=== PATIENT | female | born 1960 | race Caucasian/White ===

== ENCOUNTER → 2017-06-03 | Outpatient (REF) | payer OTHER ==
[2017-06-04 14:25] LABS: COMPLEMENT C4 29.2 MG/DL (10-40)
== END ==
LOC: M LAB REF 13:16
PROVIDERS: ATTEND Internal Medicine Nephrology
DX: N18.3 Chronic kidney disease, stage 3 (moderate) (principal); N17.9 Acute kidney failure, unspecified; R80.9 Proteinuria, unspecified

== ENCOUNTER → 2017-06-11 | Outpatient (REF) | payer MEDICARE, OTHER ==
[2017-06-12 14:21] LABS: PERCENT SATURATION 15.4 % (13.2-45.0)
== END ==
LOC: M LAB REF 13:57
PROVIDERS: ATTEND Internal Medicine Nephrology
DX: N18.3 Chronic kidney disease, stage 3 (moderate) (principal); D63.1 Anemia in chronic kidney disease; D50.9 Iron deficiency anemia, unspecified

== ENCOUNTER → 2017-07-02 | Outpatient (CLI) | payer MEDICARE, OTHER ==
--- NOTE | 2017-07-02 14:23 | REP ---
Nuclear renal scintigraphy with differential flow and function analysis: History: Chronic kidney disease stage IV. Technique: 8.6 mCi of technetium 99m MAG 3 is injected and posterior flow and excretory phase images are acquired. Renal cortical regions of interest are drawn and time activity curves are plotted for renal functional analysis. Scintigraphic findings: Posterior flow study shows delayed perfusion of the left kidney compared to the right. Excretory phase images demonstrate asymmetric function with bilaterally delayed pyelogram phase. No intrarenal mass lesion is seen on either side. There is evidence of bilateral hydronephrosis with bilaterally dilated filling of the intrarenal collecting systems and ureters particularly on the left. Differential renal function analysis is asymmetric with only 24% of overall renal cortical counts coming from the left kidney and 76% coming from the right. Time to peak activity is abnormal bilaterally measured at 20 minutes on the left and 27 minutes on the right. The renal excretion curves are rising on both sides. Impression: Rising renal excretion curves bilateral hydronephrosis. Findings compatible with obstructive uropathy. Delayed perfusion left kidney. Signed by Jos Velasquez MD 07/02/2017 02:48 P
== END ==
LOC: M RAD 12:49
PROVIDERS: ATTEND Internal Medicine Nephrology
DX: N13.9 Obstructive and reflux uropathy, unspecified (principal)
CPT/HCPCS: 78707; A9562

== ENCOUNTER → 2017-08-20 | Outpatient (REF) | LOC: M SMT 11:39 | DX: Z02.71 Encounter for disability determination (principal) ==

== ENCOUNTER → 2018-12-30 | Outpatient (REF) | payer MEDICARE, MEDICAID ==
[2018-12-30 18:44] LABS: BASO # 0.1 10^3/uL (0.0-0.2); BASO % 0.7 % (0.0-1.0); EOS # 0.2 10^3/uL (0.0-0.50); EOS % 1.8 % (0.0-3.0); HEMATOCRIT 43.6 % (36.0-47.0); LYMPH # 3.4 10^3/uL (1.5-4.5); MEAN CORPUSCULAR HEMOGLOBIN 30.6 pg (27.0-33.0); MEAN CORPUSCULAR HGB CONC 32.1 g/dl (32.0-36.5); MEAN CORPUSCULAR VOLUME 95.2 fl (80.0-96.0); MONO # 1.2 10^3/uL (0.0-0.8); MONO % 11.9 % (0.0-5.0); NEUTROPHILS # 5.1 10^3/uL (1.8-7.7); NEUTROPHILS % 51.3 % (36.0-66.0); PLATELET COUNT, AUTOMATED 298 10^3/uL (150-450); RED BLOOD COUNT 4.58 10^6/uL (4.00-5.40); WHITE BLOOD COUNT 9.9 10^3/uL (4.0-10.0)
== END ==
LOC: M LAB REF 17:16
PROVIDERS: ATTEND Internal Medicine Nephrology
DX: N18.3 Chronic kidney disease, stage 3 (moderate) (principal); I48.91 Unspecified atrial fibrillation

== ENCOUNTER → 2019-10-27 | Outpatient (REF) | payer MEDICARE, MEDICAID | LOC: M LAB REF 12:46 | PROVIDERS: ATTEND Nurse Practitioner Family | DX: N39.0 Urinary tract infection, site not specified (principal) ==

== ENCOUNTER → 2020-06-09 | Outpatient (REF) | payer MEDICARE, MEDICAID ==
[2020-06-09 18:44] LABS: PERCENT SATURATION 12.8 % (13.2-45.0)
== END ==
LOC: M LAB REF 17:03
PROVIDERS: ATTEND Internal Medicine Nephrology
DX: N39.0 Urinary tract infection, site not specified (principal); N18.30 Chronic kidney disease, stage 3 unspecified; D63.1 Anemia in chronic kidney disease

== ENCOUNTER → 2020-09-25 | Outpatient (REF) | payer MEDICARE, MEDICAID | LOC: M LAB REF 17:20 | PROVIDERS: ATTEND Internal Medicine Nephrology | DX: R30.0 Dysuria (principal) ==

== ENCOUNTER → 2021-04-04 | Outpatient (REF) | payer MEDICARE, MEDICAID | LOC: M LAB REF 17:03 | PROVIDERS: ATTEND Internal Medicine Nephrology | DX: N39.0 Urinary tract infection, site not specified (principal); N18.32 Chronic kidney disease, stage 3b; E83.42 Hypomagnesemia ==

== ENCOUNTER → 2021-11-27 | Outpatient (POV) | payer MEDICARE, MEDICAID ==
[~2021-11-27] VITALS: Ht 165.1 cm; Wt 80.0 kg
[~2021-11-27] MED LIST: AMIO200T49 PO; CYCL-707 PO; DULO1CAP6 PO; ENTR1TAB7 PO; LEVO88TA3 PO; METO1TAB7 PO; NEUR300C PO; XARE15TA PO
[2021-11-27 13:40] VITALS: BP 122/82
== END ==
LOC: M IRPOV 13:24
PROVIDERS: ATTEND Radiology Diagnostic Radiology
DX: Z93.6 Other artificial openings of urinary tract status (principal); Z87.440 Personal history of urinary (tract) infections; Z87.442 Personal history of urinary calculi; Z87.448 Personal history of other diseases of urinary system; Z79.01 Long term (current) use of anticoagulants

== ENCOUNTER → 2021-12-05 | Outpatient (CLI) | payer MEDICARE, MEDICAID ==
[~2021-12-05] MED LIST changes: +CEPHALEXIN 500 MG CAP As Ordered ONE; +ISOVUE-300 61% 50ML VIAL As Ordered ONE; +LIDOCAINE 1% MDV 20ML VIAL As Ordered ONE
[2021-12-05] MEDS: CEPHALEXIN 500 MG CAP PO ONE (10:40)
[2021-12-05 14:00] VITALS: BP 107/61
== END ==
LOC: M IRPRO 09:56
PROVIDERS: ATTEND Radiology Diagnostic Radiology
DX: N35.92 Unspecified urethral stricture, female (principal)
CPT/HCPCS: 50435; C1729; C1769; C1887; Q9967

== ENCOUNTER → 2022-05-08 | Outpatient (CLI) | payer MEDICARE, MEDICAID ==
[~2022-05-08] MED LIST changes: -CEPHALEXIN 500 MG CAP As Ordered ONE; -ISOVUE-300 61% 50ML VIAL As Ordered ONE; -LIDOCAINE 1% MDV 20ML VIAL As Ordered ONE; +NS 1,000 ML IV SCH; +ceFAZolin 2 GM/D5W 50 ML IV BAG (J0690 PER 500MG) As Ordered ONE; +ceFAZolin SOD 2 GM in D5W MINI-BAG PLUS 50 ML IV ONE
[2022-05-08 12:45] VITALS: BP 105/71
== END ==
LOC: M IRPRO 12:31
PROVIDERS: ATTEND Radiology Diagnostic Radiology
DX: N13.9 Obstructive and reflux uropathy, unspecified (principal); Z53.29 Procedure and treatment not carried out because of patient's decision for other reasons

== ENCOUNTER → 2022-07-10 | Outpatient (CLI) | payer MEDICARE, MEDICAID ==
[~2022-07-10] MED LIST changes: +CEPHALEXIN 500 MG CAP As Ordered ONE; +CEPHALEXIN 500 MG CAP PO ONE; +ISOVUE-300 61% 50ML VIAL As Ordered ONE; +LIDOCAINE 1% MDV 20ML VIAL As Ordered ONE; -ceFAZolin 2 GM/D5W 50 ML IV BAG (J0690 PER 500MG) As Ordered ONE
[2022-07-10 12:55] VITALS: BP 153/87
== END ==
LOC: M IRPRO 11:04
PROVIDERS: ATTEND Radiology Diagnostic Radiology
DX: N35.92 Unspecified urethral stricture, female (principal)
CPT/HCPCS: 50435; C1729; C1769; Q9967

== ENCOUNTER → 2023-01-13 | Outpatient (REF) | payer MEDICARE, MEDICAID ==
[~2023-01-13] MED LIST changes: -CEPHALEXIN 500 MG CAP As Ordered ONE; -CEPHALEXIN 500 MG CAP PO ONE; -ISOVUE-300 61% 50ML VIAL As Ordered ONE; -LIDOCAINE 1% MDV 20ML VIAL As Ordered ONE; -NS 1,000 ML IV SCH; -ceFAZolin SOD 2 GM in D5W MINI-BAG PLUS 50 ML IV ONE
== END ==
LOC: M LAB REF 17:14
PROVIDERS: ATTEND Internal Medicine Nephrology
DX: N39.0 Urinary tract infection, site not specified (principal)

== ENCOUNTER → 2023-05-13 | Outpatient (REF) | payer MEDICARE, MEDICAID | LOC: M LAB REF 17:08 | PROVIDERS: ATTEND Internal Medicine Nephrology | DX: N39.0 Urinary tract infection, site not specified (principal) ==